=== PATIENT | female | born 1970 | race Two or more races ===

== ENCOUNTER 2021-09-27 08:59 | Emergency (ER) | payer MEDICAID ==
[~2021-09-27] VITALS: Ht 162.6 cm; Wt 59.6 kg
[2021-09-27 09:06] VITALS: BP 137/91
--- NOTE | 2021-09-27 09:11 | NUR ---
BIB FAMILY C/O GENERALIZED WEAKNESS, 5/10 HEADACHE X 2 DAYS. DENIES N/V/D; SKIN IS PINK/WARM/DRY; AAOX4 WITH EVEN AND STEADY GAIT; LUNGS CLEAR BL; HR EVEN AND REGULAR; PT DENIES ANY FEVER, CP, SOB, OR COUGH AT THIS TIME.
--- NOTE | 2021-09-27 09:45 | NUR ---
Patient being evaluated by CANDI at [facility].
[2021-09-27] MEDS ORDERED: IBUP-2213 PO (09:52)
[2021-09-27] MEDS ORDERED: PSEU120T22 PO (09:52)
[2021-09-27 10:05] VITALS: BP 112/60
--- NOTE | 2021-09-27 10:05 | NUR ---
Patient discharged with v/s stable. Written and verbal after care instructions given and explained. Patient alert, oriented and verbalized understanding of instructions. Ambulatory with steady gait. All questions addressed prior to discharge. ID band removed. Patient advised to follow up with PMD. Rx of IBUPROFEN & SUDAFED given. Patient educated on indication of medication including possible reaction and side effects. Opportunity to ask questions provided and answered.
== END 2021-09-27 10:05 | disposition home or self-care (01) ==
LOC: MED 08:59
DX: R51.9 Headache, unspecified (principal); J06.9 Acute upper respiratory infection, unspecified
CPT/HCPCS: 81002; 81025; 99282

== ENCOUNTER 2022-01-18 17:18 | Emergency (ER) | payer MEDICAID, OTHER ==
[~2022-01-18] VITALS: Ht 152.4 cm; Wt 55.3 kg
[~2022-01-18 17:18] MED LIST: IBUP-2213 PO; PSEU120T22 PO
[2022-01-18 17:49] VITALS: BP 113/71
[2022-01-18 18:38] LABS: BASOPHILS % (AUTO) 0.3 % (0.0-2.0); EOSINOPHILS % (AUTO) 0.4 % (0.0-4.0); HEMATOCRIT 43.7 % (36-48); HEMOGLOBIN 14.9 g/dL (12.0-16.0); LYMPHOCYTES # (AUTO) 3.2 K/uL (2.5-16.5); LYMPHOCYTES % (AUTO) 42.5 % (20.5-51.1); MEAN CORPUSCULAR HEMOGLOBIN 30 pg (27-31); MEAN CORPUSCULAR HGB CONC 34 g/dL (33-37); MEAN CORPUSCULAR VOLUME 88.5 fL (80-94); MONOCYTES # (AUTO) 0.5 K/uL (0.8-1.0); MONOCYTES % (AUTO) 7.1 % (1.7-9.3); NEUTROPHILS # (AUTO) 3.8 K/uL (1.8-7.7); NEUTROPHILS % (AUTO) 49.7 % (42.2-75.2); PLATELET COUNT (AUTO) 183 K/uL (140-450); RED BLOOD CELL COUNT(AUTO) 4.94 MIL/uL (4.20-5.40); RED CELL DISTRIBUTION WIDTH 12.5 % (11.6-13.7); WHITE BLOOD COUNT (AUTO) 7.6 K/uL (4.8-10.8)
--- NOTE | 2022-01-18 18:50 | NUR ---
51 y/o female, pt presents to ed with c/o burning, intermittent llq abd pain and vomiting for 3 weeks, describes pain as 8/10. pt states pain radiates upwards towards her flank area. denies dysuria, diarrhea, cough, sob, cp or fevers. a&ox4, ambulates with steady gait. pmh: dm2 nka med: denies
[2022-01-18 19:09] LABS: ANION GAP 13.6 (8-16); CARBON DIOXIDE 29.7 mmol/L (21-32); CREATININE 0.8 mg/dL (0.6-1.3); POTASSIUM 4.3 mmol/L (3.5-5.1); TOTAL BILIRUBIN 1.1 mg/dL (0.0-1.0)
--- NOTE | 2022-01-18 19:15 | NUR ---
Report given to DILMA Claros for transfer of care.
--- NOTE | 2022-01-18 21:12 | NUR ---
pt resting in bed, RR even and unlabored, nAD.
[2022-01-18] MEDS ORDERED: KETOROLAC 30 MG/ML VIAL IM ONE (22:30)
--- NOTE | 2022-01-18 23:23 | NUR ---
PT RESTING IN BED, RR EVEN AND UNLABORED, NAD.
[2022-01-18] MEDS ORDERED: ACET-10509 PO (23:26)
[2022-01-18] MEDS ORDERED: BEN10 PO (23:27)
[2022-01-18 23:44] VITALS: BP 116/80
--- NOTE | 2022-01-18 23:44 | NUR ---
Patient discharged with v/s stable. Written and verbal after care instructions given and explained. Patient alert, oriented and verbalized understanding of instructions. Ambulatory with steady gait. All questions addressed prior to discharge. ID band removed. Patient advised to follow up with PMD. Rx of TYLENOL, BENTYL given. Patient educated on indication of medication including possible reaction and side effects. Opportunity to ask questions provided and answered.
[2022-01-19 00:28] LABS: APPEARANCE,URINE CLEAR (CLEAR); BILIRUBIN,URINE NEGATIVE (NEGATIVE); BLOOD, URINE NEGATIVE (NEGATIVE); COLOR,URINE YELLOW (YELLOW); LEUKOCYTE ESTERASE ,URINE NEGATIVE (NEGATIVE); NITRITE, URINE NEGATIVE (NEGATIVE); UGLUCOSE NEGATIVE (NEGATIVE)
== END 2022-01-18 23:44 | disposition home or self-care (01) ==
LOC: MED 17:18
DX: K80.20 Calculus of gallbladder without cholecystitis without obstruction (principal); R11.2 Nausea with vomiting, unspecified; Z79.899 Other long term (current) drug therapy
CPT/HCPCS: 36415; 74177; 80053; 81003; 81025; 83690; 84702; 85025; 96372; 99285; J1885; Q9967

== ENCOUNTER 2022-01-25 22:00 | Emergency (ER) | payer OTHER ==
[~2022-01-25] VITALS: Ht 157.5 cm; Wt 54.9 kg
[~2022-01-25 22:00] MED LIST changes: +ACET-10509 PO; +BEN10 PO
[2022-01-25 22:22] VITALS: BP 108/76
[2022-01-25] MEDS ORDERED: NACL 0.9% 1,000 ML IV SCH (23:25)
[2022-01-25] MEDS ORDERED: ONDANSETRON 4 MG/2 ML VIAL IVP ONE (23:25)
[2022-01-25] MEDS ORDERED: MORPHINE SULFATE 2 MG/ML SYR IVP ONE (23:25)
--- NOTE | 2022-01-25 23:30 | NUR ---
C/O LLQ abdominal pain x 1 month. Patient reported, had LLQ abdominal pain with diarrhea for a month. Patient came to ER on 01/18/22, Rx pain medications, no relief, Her next appointment with her PMD on 02/09/22. PMHx: NEHEMIAS
[2022-01-25 23:47] LABS: BASOPHILS % (AUTO) 0.1 % (0.0-2.0); EOSINOPHILS # (AUTO) 0.1 K/uL (0-0.4); HEMATOCRIT 38.5 % (36-48); HEMOGLOBIN 13.3 g/dL (12.0-16.0); LYMPHOCYTES # (AUTO) 2.7 K/uL (2.5-16.5); LYMPHOCYTES % (AUTO) 41.4 % (20.5-51.1); MEAN CORPUSCULAR HEMOGLOBIN 30 pg (27-31); MEAN CORPUSCULAR HGB CONC 34 g/dL (33-37); MEAN CORPUSCULAR VOLUME 87.5 fL (80-94); MONOCYTES # (AUTO) 0.5 K/uL (0.8-1.0); MONOCYTES % (AUTO) 8.3 % (1.7-9.3); NEUTROPHILS # (AUTO) 3.2 K/uL (1.8-7.7); NEUTROPHILS % (AUTO) 49.2 % (42.2-75.2); PLATELET COUNT (AUTO) 156 K/uL (140-450); RED CELL DISTRIBUTION WIDTH 12.6 % (11.6-13.7); WHITE BLOOD COUNT (AUTO) 6.5 K/uL (4.8-10.8)
[2022-01-26] LABS: ALBUMIN 3.5 g/dL (3.4-5.0); ANION GAP 10.3 (8-16); CARBON DIOXIDE 29.8 mmol/L (21-32); CREATININE 0.7 mg/dL (0.6-1.3); POTASSIUM 4.1 mmol/L (3.5-5.1)
--- NOTE | 2022-01-26 00:10 | NUR ---
TOCT VIA LAILA
--- NOTE | 2022-01-26 00:20 | NUR ---
RETURNED FROM CT
--- NOTE | 2022-01-26 02:00 | NUR ---
RESTING COMFORTABLY, RESPIRATIONS REGULAR AND UNLABORED
[2022-01-26] MEDS ORDERED: HYDR-5080 PO (02:28)
[2022-01-26 03:19] VITALS: BP 114/72
--- NOTE | 2022-01-26 03:19 | NUR ---
Patient discharged with v/s stable. Written and verbal after care instructions given and explained. Patient alert, oriented and verbalized understanding of instructions. Ambulatory with steady gait. All questions addressed prior to discharge. ID band removed. Patient advised to follow up with PMD. Rx of HYDROCODONE given. Patient educated on indication of medication including possible reaction and side effects. Opportunity to ask questions provided and answered.
== END 2022-01-26 03:19 | disposition home or self-care (01) ==
LOC: MED 22:00
DX: K80.80 Other cholelithiasis without obstruction (principal); E11.9 Type 2 diabetes mellitus without complications; Z79.899 Other long term (current) drug therapy
CPT/HCPCS: 36415; 74177; 76705; 80053; 83690; 85025; 96361; 96374; 96375; 99285; J2270; J2405; Q0092; Q9967; J7030

== ENCOUNTER 2022-02-15 18:43 | Emergency (ER) | payer OTHER ==
[~2022-02-15] VITALS: Ht 160 cm; Wt 54.4 kg
[~2022-02-15 18:43] MED LIST changes: +HYDR-5080 PO
[2022-02-15 18:51] VITALS: BP 135/86
--- NOTE | 2022-02-15 18:59 | NUR ---
Perla colbert in ED - 02/15/22 at 1906 by JC Urine sample collected. Pt ambulated to bed 06 with steady/even gait.
--- NOTE | 2022-02-15 19:04 | NUR ---
Urine sample collected. Pt ambulated to lobby with steady/even gait.
[2022-02-15] MEDS ORDERED: NACL 0.9% 1,000 ML IV SCH (20:00)
[2022-02-15 20:17] LABS: APPEARANCE,URINE SL CLOUDY (CLEAR); BILIRUBIN,URINE NEGATIVE (NEGATIVE); BLOOD, URINE NEGATIVE (NEGATIVE); COLOR,URINE YELLOW (YELLOW); LEUKOCYTE ESTERASE ,URINE NEGATIVE (NEGATIVE); NITRITE, URINE NEGATIVE (NEGATIVE); UGLUCOSE NEGATIVE (NEGATIVE)
[2022-02-15 20:17] LABS: BASOPHILS % (AUTO) 0.3 % (0.0-2.0); EOSINOPHILS % (AUTO) 0.6 % (0.0-4.0); HEMATOCRIT 38.8 % (36-48); HEMOGLOBIN 13.2 g/dL (12.0-16.0); LYMPHOCYTES # (AUTO) 2.6 K/uL (2.5-16.5); LYMPHOCYTES % (AUTO) 44.6 % (20.5-51.1); MEAN CORPUSCULAR HEMOGLOBIN 31 pg (27-31); MEAN CORPUSCULAR HGB CONC 34 g/dL (33-37); MEAN CORPUSCULAR VOLUME 89.2 fL (80-94); MONOCYTES # (AUTO) 0.5 K/uL (0.8-1.0); MONOCYTES % (AUTO) 8.2 % (1.7-9.3); NEUTROPHILS # (AUTO) 2.7 K/uL (1.8-7.7); NEUTROPHILS % (AUTO) 46.3 % (42.2-75.2); PLATELET COUNT (AUTO) 154 K/uL (140-450); RED BLOOD CELL COUNT(AUTO) 4.34 MIL/uL (4.20-5.40); RED CELL DISTRIBUTION WIDTH 13.4 % (11.6-13.7); WHITE BLOOD COUNT (AUTO) 5.9 K/uL (4.8-10.8)
[2022-02-15 20:37] LABS: ALBUMIN 3.8 g/dL (3.4-5.0); ANION GAP 10.1 (8-16); CARBON DIOXIDE 28.9 mmol/L (21-32); CREATININE 0.7 mg/dL (0.6-1.3); TOTAL BILIRUBIN 0.8 mg/dL (0.0-1.0)
--- NOTE | 2022-02-15 20:39 | NUR ---
PT TAKEN TO BED 11
--- NOTE | 2022-02-15 20:39 | NUR ---
pt to bed 11.
--- NOTE | 2022-02-15 21:19 | NUR ---
51 yo f bib self with c/c of 10/10 LLQ pain x1.5 months. pt states she was here about 1 month ago for similar pain and was told she has gallstones. pt followed up with primary and sent to specialist, states her appointment is too far out and pain is getting worse. pt reports new onset of left sided chest pain x3-4days. reports worsens when llq starts to hurt. +n/v xtoday. denies blood in emesis. hx:dm rx:metformin nka
--- NOTE | 2022-02-15 21:52 | NUR ---
PT TAKEN TO CT
[2022-02-15] MEDS ORDERED: BEN10 PO (23:21)
[2022-02-15 23:43] VITALS: BP 149/70
--- NOTE | 2022-02-15 23:43 | NUR ---
Patient discharged with v/s stable. Written and verbal after care instructions given and explained. Patient alert, oriented and verbalized understanding of instructions. Ambulatory with steady gait. All questions addressed prior to discharge. ID band removed. Patient advised to follow up with PMD. Rx of bentyl given. Patient educated on indication of medication including possible reaction and side effects. Opportunity to ask questions provided and answered.
== END 2022-02-15 23:43 | disposition home or self-care (01) ==
LOC: MED 18:43
DX: R10.32 Left lower quadrant pain (principal); R10.12 Left upper quadrant pain; R07.9 Chest pain, unspecified; E11.9 Type 2 diabetes mellitus without complications; Z79.899 Other long term (current) drug therapy; Z79.891 Long term (current) use of opiate analgesic; Z79.1 Long term (current) use of non-steroidal anti-inflammatories (NSAID)
CPT/HCPCS: 36415; 74177; 80053; 81003; 83690; 84484; 85025; 93005; 96360; 99285; J7030; Q9967

== ENCOUNTER 2022-10-02 09:22 | Emergency (ER) | payer OTHER ==
[~2022-10-02] VITALS: Ht 160 cm; Wt 59.9 kg
[2022-10-02 09:41] VITALS: BP 109/70
[2022-10-02] MEDS ORDERED: KETOROLAC 30 MG/ML VIAL IM ONE (10:15)
--- NOTE | 2022-10-02 10:51 | NUR ---
PT RETURNED FROM CT SCAN AND PLACED IN BED 11
[2022-10-02 11:15] LABS: BASOPHILS % (AUTO) 0.2 % (0.0-2.0); EOSINOPHILS % (AUTO) 0.4 % (0.0-4.0); HEMOGLOBIN 13.6 g/dL (12.0-16.0); LYMPHOCYTES # (AUTO) 1.9 K/uL (2.5-16.5); LYMPHOCYTES % (AUTO) 32.1 % (20.5-51.1); MEAN CORPUSCULAR HEMOGLOBIN 30 pg (27-31); MEAN CORPUSCULAR HGB CONC 34 g/dL (33-37); MEAN CORPUSCULAR VOLUME 89.2 fL (80-94); MONOCYTES # (AUTO) 0.4 K/uL (0.8-1.0); MONOCYTES % (AUTO) 6.9 % (1.7-9.3); NEUTROPHILS # (AUTO) 3.5 K/uL (1.8-7.7); NEUTROPHILS % (AUTO) 60.4 % (42.2-75.2); PLATELET COUNT (AUTO) 170 K/uL (140-450); RED BLOOD CELL COUNT(AUTO) 4.48 MIL/uL (4.20-5.40); RED CELL DISTRIBUTION WIDTH 13.3 % (11.6-13.7); WHITE BLOOD COUNT (AUTO) 5.8 K/uL (4.8-10.8)
[2022-10-02 11:19] LABS: APPEARANCE,URINE CLEAR (CLEAR); BILIRUBIN,URINE NEGATIVE (NEGATIVE); BLOOD, URINE NEGATIVE (NEGATIVE); COLOR,URINE YELLOW (YELLOW); LEUKOCYTE ESTERASE ,URINE 1+ (NEGATIVE); NITRITE, URINE NEGATIVE (NEGATIVE); UGLUCOSE NEGATIVE (NEGATIVE)
[2022-10-02 11:30] LABS: RBC,URINE 0-5 /HPF (0-5)
[2022-10-02 11:41] LABS: ALBUMIN 3.7 g/dL (3.4-5.0); CARBON DIOXIDE 31.1 mmol/L (21-32); CREATININE 0.7 mg/dL (0.6-1.3); POTASSIUM 4.1 mmol/L (3.5-5.1)
[2022-10-02] MEDS ORDERED: IBUP-2213 PO (12:01)
[2022-10-02] MEDS ORDERED: ACET-8905 PO (12:01)
[2022-10-02 12:20] VITALS: BP 131/67
--- NOTE | 2022-10-02 12:20 | NUR ---
Patient discharged with v/s stable. Written and verbal after care instructions given and explained. Patient alert, oriented and verbalized understanding of instructions. Ambulatory with steady gait. All questions addressed prior to discharge. ID band removed. Patient advised to follow up with PMD. Rx of IBUPROFEN, NORCO given. Patient educated on indication of medication including possible reaction and side effects. Opportunity to ask questions provided and answered.
== END 2022-10-02 12:20 | disposition home or self-care (01) ==
LOC: MED 09:22
DX: K80.50 Calculus of bile duct without cholangitis or cholecystitis without obstruction (principal); E11.9 Type 2 diabetes mellitus without complications; Z79.899 Other long term (current) drug therapy
CPT/HCPCS: 36415; 76705; 80053; 81001; 81025; 83690; 85025; 87086; 96372; 99285; J1885; Q0092

== ENCOUNTER 2022-10-08 17:28 | Emergency (ER) | payer OTHER ==
[~2022-10-08] VITALS: Ht 165.1 cm; Wt 59.9 kg
[~2022-10-08 17:28] MED LIST changes: +ACET-8905 PO
[2022-10-08 17:33] VITALS: BP 121/61
[2022-10-08] MEDS ORDERED: DIPH25TA53 PO (18:42)
[2022-10-08] MEDS ORDERED: VALA1TAB40 PO (18:42)
[2022-10-08] MEDS ORDERED: GABA300C PO (18:42)
[2022-10-08] MEDS ORDERED: ACET-10509 PO (18:44)
--- NOTE | 2022-10-08 18:51 | NUR ---
Patient discharged with v/s stable. Written and verbal after care instructions ABOUT SHINGLES given and explained. Patient alert, oriented and verbalized understanding of instructions. Ambulatory with steady gait. All questions addressed prior to discharge. ID band removed. Patient advised to follow up with PMD. Rx of VALACYCLOVIR, GABAPENTIN, TYLENOL, BENADRYL given. Patient educated on indication of medication including possible reaction and side effects. Opportunity to ask questions provided and answered.
== END 2022-10-08 18:51 | disposition home or self-care (01) ==
LOC: MED 17:28
DX: B02.9 Zoster without complications (principal); E11.9 Type 2 diabetes mellitus without complications; Z79.4 Long term (current) use of insulin; Z79.899 Other long term (current) drug therapy
CPT/HCPCS: 99283

== ENCOUNTER 2023-09-16 17:02 | Emergency (ER) | payer OTHER ==
[~2023-09-16] VITALS: Ht 167.6 cm; Wt 74.8 kg
[~2023-09-16 17:02] MED LIST changes: +DIPH25TA53 PO; +GABA300C PO; +VALA1TAB40 PO
[2023-09-16 17:07] VITALS: BP 110/61; PULSE 97; RESP 18; TEMP 98.9; O2SAT 96
[2023-09-16] MEDS: NACL 0.9% 1,000 ML IV ONE ×2 (20:05→22:45)
[2023-09-16 20:10] LABS: BASOPHILS % (AUTO) 0.6 % (0.0-2.0); EOSINOPHILS % (AUTO) 0.2 % (0.0-4.0); HEMATOCRIT 43.2 % (36-48); HEMOGLOBIN 15.2 g/dL (12.0-16.0); LYMPHOCYTES # (AUTO) 0.9 K/uL (2.5-16.5); MEAN CORPUSCULAR HEMOGLOBIN 31 pg (27-31); MEAN CORPUSCULAR HGB CONC 35 g/dL (33-37); MEAN CORPUSCULAR VOLUME 87.8 fL (80-94); MONOCYTES # (AUTO) 0.9 K/uL (0.8-1.0); MONOCYTES % (AUTO) 10.3 % (1.7-9.3); NEUTROPHILS # (AUTO) 6.5 K/uL (1.8-7.7); NEUTROPHILS % (AUTO) 77.9 % (42.2-75.2); PLATELET COUNT (AUTO) 154 K/uL (140-450); RED BLOOD CELL COUNT(AUTO) 4.92 MIL/uL (4.20-5.40); RED CELL DISTRIBUTION WIDTH 13.3 % (11.6-13.7); WHITE BLOOD COUNT (AUTO) 8.4 K/uL (4.8-10.8)
[2023-09-16 20:25] LABS: ANION GAP 12.7 (8-16); CALCIUM 9.6 mg/dL (8.5-10.1); CARBON DIOXIDE 27.5 mmol/L (21-32); POTASSIUM 4.2 mmol/L (3.5-5.1)
[2023-09-16 20:26] VITALS: O2SAT 98
[2023-09-16 20:33] LABS: APPEARANCE,URINE SL CLOUDY (CLEAR); BILIRUBIN,URINE 2+ (NEGATIVE); BLOOD, URINE NEGATIVE (NEGATIVE); COLOR,URINE YELLOW (YELLOW); LEUKOCYTE ESTERASE ,URINE 1+ (NEGATIVE); NITRITE, URINE POSITIVE (NEGATIVE); PROTEIN,URINE 2+ (NEGATIVE); UGLUCOSE TRACE (NEGATIVE)
[2023-09-16 20:37] LABS: ICTOTEST NEGATIVE (NEGATIVE)
[2023-09-16 20:41] LABS: BACTERIA,URINE 10-30 (MOD) /HPF (None Seen); RBC,URINE 0-5 /HPF (0-5); SQUAMOUS EPITHELIAL CELL,UR 4-10 (MOD) /LPF (0-3 (FEW))
[2023-09-16 23:42] VITALS: BP 104/51; PULSE 61; RESP 18; TEMP 98.4; O2SAT 98
== END 2023-09-16 23:42 | disposition home or self-care (01) ==
LOC: MED 17:02
DX: N39.0 Urinary tract infection, site not specified (principal); R53.83 Other fatigue; E11.9 Type 2 diabetes mellitus without complications; Z79.4 Long term (current) use of insulin; Z79.899 Other long term (current) drug therapy
CPT/HCPCS: 36415; 80048; 81001; 82009; 85025; 87086; 96360; 96361; 99283; J7030